=== PATIENT | female | born 1995 | race Caucasian/White ===

== ENCOUNTER 2023-07-05 11:34 | Outpatient (CLI) | payer MEDICAID, SELFPAY ==
[2023-07-05 13:40] LABS: Hepatitis B Surface Antigen Negative (Negative); Rubella IgG Antibody 19.2 IU/ML
[2023-07-05 16:03] LABS: Rapid Plasma Reagin Non-Reactive (NonReactive)
[2023-07-05 17:55] LABS: HIV 1/2 Ab P24 Ag Result Negative (Negative)
[2023-07-09 10:03] LABS: CMV IgG Antibody <0.60 U/mL (<0.60)
== END 2023-07-05 11:35 | disposition home or self-care (01) ==
PROVIDERS: PCP Family Medicine; Visit Provider Student in an Organized Health Care Education/Training Program
DX: N94.89 Other specified conditions associated with female genital organs and menstrual cycle (principal)
CPT/HCPCS: 36415; 84702; 86592; 86644; 86703; 86747; 86762; 86787; 87077; 87086; 87088; 87340; G0432